=== PATIENT | female | born 1950 | race Caucasian/White ===

== ENCOUNTER 2017-04-13 10:19 | Emergency (ER) | payer OTHER ==
[~2017-04-13] VITALS: Ht 165.1 cm; Wt 65.0 kg
[2017-04-13 11:32] LABS: HEMATOCRIT 37.8 % (36.0-46.0); MCH 30.2 PG (29.0-34.0); MCHC 33.1 G/DL (30.0-36.0); MCV 91.3 FL (83-99); MEAN PLAT.VOLUME 9.5 uM^3 (9.5-12.4); PLATELET COUNT 123 K/uL (156-360); RBC DIS.WIDTH-CV 12.8 % (11.8-14.6); RBC DIS.WIDTH-SD 42.7 % (39-53); RED BLOOD COUNT 4.14 M/uL (3.80-5.20); WHITE BLOOD COUNT 3.9 K/uL (4.1-10.2)
[2017-04-13 11:46] LABS: CHLORIDE 97 mEq/L (99-109); POTASSIUM 4.1 mEq/L (3.7-5.4); SODIUM 130 mEq/L (136-147)
[2017-04-13 11:47] LABS: GLUCOSE 110 mg/dL (70-99)
[2017-04-13 11:49] LABS: ANION GAP 6 MEQ/L (2-14)
[2017-04-13 11:51] LABS: GFR ESTIMATE (CALCULATED) 58 mL/min/
[2017-04-13 11:52] LABS: UREA NITROGEN (BUN) 16 mg/dL (9-23)
[2017-04-13 12:13] LABS: BASOPHIL COUNT 0.1 K/uL (0-0.1); EOSINOPHIL (%) 0 % (0-5); IMMATURE GRANULOCYTE (%) 0.5 % (0.0-0.7); INSTRUMENT ABS NEUTROPHIL CT 2.4 K/uL; LYMPHOCYTE COUNT 0.9 K/uL (1.0-2.8); MONOCYTE (%) 12.7 % (3-12); MONOCYTE COUNT 0.5 K/uL (0-0.8); NEUTROPHIL (%) 62.5 % (45-76); NEUTROPHIL COUNT 2.4 K/uL (1.8-6.4)
[2017-04-13] MEDS ORDERED: DOXYCYCLINE HY100 MG PO (13:44)
[2017-04-13 14:26] VITALS: BP 96/83
[2017-04-15 14:17] LABS: LYME DISEASE SEROLOGY SCREEN NEGATIVE (NEGATIVE)
== END 2017-04-13 14:29 | disposition home or self-care (01) ==
LOC: EME 10:19
PROVIDERS: Emergency Medicine
DX: M25.561 Pain in right knee (principal); R21 Rash and other nonspecific skin eruption; E03.9 Hypothyroidism, unspecified
CPT/HCPCS: 80048; 85025; 86618; 93971; 99281; 99284